=== PATIENT | female | born 1950 | race African-American/Black ===

== ENCOUNTER 2017-11-12 10:18 | Emergency (ER) | payer SELFPAY ==
[~2017-11-12] VITALS: Ht 167.6 cm; Wt 87.0 kg
[~2017-11-12 10:18] MED LIST: AMLO5TAB4; ASPI-1158; CALC1TAB17; ESTROVEN; SIMV20TA2; VITAMIN
[2017-11-12] MEDS ORDERED: HYDROCODONE/ACETAMINOPHEN 5/325MG TABLET PO ONE (12:30)
[2017-11-12] MEDS ORDERED: KETOROLAC 60MG/2ML VIAL IM ONE (13:15)
[2017-11-12 14:39] VITALS: BP 154/68
== END 2017-11-12 14:42 | disposition home or self-care (01) ==
LOC: ER 11:38
DX: B02.9 Zoster without complications (principal); M54.9 Dorsalgia, unspecified; I10 Essential (primary) hypertension; E78.00 Pure hypercholesterolemia, unspecified; Z79.82 Long term (current) use of aspirin
CPT/HCPCS: 96372; 99283; J1885